=== PATIENT | female | born 1945 | race Caucasian/White ===

== ENCOUNTER 2017-05-22 10:50 | Outpatient (CLI) | payer MEDICARE, OTHER ==
--- NOTE | 2017-05-22 13:25 | MMO ---
BASELINE BILATERAL SCREENING MAMMOGRAM: Date: 05/22/17 COMPARISON: None. HISTORY: Screening. FINDINGS: This patient's mammogram was interpreted with the assistance of computer-aided detection. The breasts are primary fatty replaced. Small, benign intramammary nodes are seen bilaterally. There is no dominant mass or architectural distortion. No concerning microcalcifications are noted. IMPRESSION: BIRADS 2: Benign Finding(s) Annual screening mammography recommended. POS: [facility]
== END 2017-05-22 10:51 | disposition home or self-care (01) ==
LOC: SCSMAMMO 10:50
PROVIDERS: ATTEND Family Medicine
DX: Z12.31 Encounter for screening mammogram for malignant neoplasm of breast (principal)
CPT/HCPCS: 77067; G0202

== ENCOUNTER 2017-08-15 14:53 | Outpatient (CLI) | payer MEDICARE, OTHER ==
--- NOTE | 2017-08-15 16:51 | RAD ---
PA AND LATERAL CHEST XRAY: DATE: 08/15/17. HISTORY: Three weeks of cough and congestion. COMPARISON: 04/14/17. FINDINGS: Cardiac silhouette and pulmonary vasculature are within normal limits. Linear scar versus atelectasi s is present at the left lung base. Lungs are otherwise clear. Osseous structures are intact. IMPRESSION: No acute cardiopulmonary process. POS: [facility]
== END 2017-08-15 14:54 | disposition home or self-care (01) ==
LOC: SCSRAD 14:53
PROVIDERS: ATTEND Family Medicine
DX: J20.8 Acute bronchitis due to other specified organisms (principal)
CPT/HCPCS: 71046

== ENCOUNTER 2018-12-03 16:30 | Outpatient (CLI) | payer MEDICARE, OTHER ==
--- NOTE | 2018-12-03 16:54 | RAD ---
LUMBAR SPINE 2 VIEWS: HISTORY: Lumbago with sciatica, right side FINDINGS: Degenerative changes are present, most prominent in the lower lumbar spine. There is grade 1-2 latasha listhesis of L5 over L5 vertebral bodies. No compression fracture or bony destruction is seen. There are vascular calcifications. Postop changes of cholecystectomy are present.
== END 2018-12-03 16:31 | disposition home or self-care (01) ==
LOC: BICRAD 16:30
PROVIDERS: ATTEND Family Medicine
DX: M54.41 Lumbago with sciatica, right side (principal)
CPT/HCPCS: 72100

== ENCOUNTER 2019-02-07 12:49 | Outpatient (CLI) | payer MEDICARE, OTHER ==
--- NOTE | 2019-02-07 14:01 | MRI ---
MRI LUMBAR SPINE NONCONTRAST: HISTORY: Low back pain. Radiation down the right leg. COMPARISON: None. FINDINGS: Mildly heterogeneous T1 marrow signal intensity, compatible with senescent change. Lumbar spine verte bral body height is maintained. No fracture. 6.5 mm of anterolisthesis of L4 upon L5. No significant STIR hyperintensity to suggest vertebral body edema or ligamentous injury. Visualized paraspinal muscles are unremarkable. T2 hyperintensities in the left and right renal pelvi s may represent parapelvic cysts. Conus medullaris terminates at the superior aspect of L1. T12-L1: Minimal disc bulge. No significant central canal stenosis or significant neural foraminal brian rowing. L1-L2:No significant central canal stenosis or significant neural foraminal narrowing. L2-L3:Minimal left and right paracentral disc bulges along with mild ligamentum flavum thickening and facet hypertrophy result in mild central canal stenosis. Mild bilateral neural foraminal narrowing. L3-L4:Minimal left and right paracentral/subarticular disc bulges. Ligamentum flavum thickening and f acet hypertrophy are present. Mild central canal stenosis. Narrowing of both subarticular zones with partial obscuration of bilateral traversing L4 nerve root secondary to disc material and posteri or element hypertrophy. Mild bilateral neural foraminal narrowing. L4-L5:Broad-based disc bulge, ligamentum flavum thickening and facet hypertrophy result in moderate c entral canal stenosis. Mild to moderate right and mild left neural foraminal narrowing. L5-S1:No significant posterior disc abdomen body. No significant central canal stenosis. Right neural foramen is patent. Moderate left foraminal narrowing due to posterior element hypertrophy. IMPRESSION: Degenerative changes of the lumbar spine as detailed above. Transcribed Date/Time: 02/07/2019 2:43 PM
== END 2019-02-07 12:50 | disposition home or self-care (01) ==
LOC: BICMRI 12:49
PROVIDERS: ATTEND Physical Medicine & Rehabilitation
DX: M54.5 Low back pain (principal); M79.604 Pain in right leg; R29.898 Other symptoms and signs involving the musculoskeletal system; M47.816 Spondylosis without myelopathy or radiculopathy, lumbar region
CPT/HCPCS: 72148

== ENCOUNTER 2019-06-17 13:50 | Outpatient (CLI) | payer MEDICARE, OTHER ==
--- NOTE | 2019-06-17 14:20 | BD ---
EXAM: DEXA bone density examination HISTORY: 74-year-old postmenopausal female for screening COMPARISON: None FINDINGS: L1--bone mineral density 0.795 g/sq cm; T score -1.8 L2--bone mineral density 0.959 g/sq cm; T score -0.6 L3--bone mineral density 0.975 g/sq cm; T score -1.0 L4--bone mineral density 1.018 g/sq cm; T score -0.4 Total L1-L4--bone mineral density 0.949 g/sq cm; T score -0.9 Left femoral neck--bone mineral density0.651; T score -1.8 Total proximal left femur--bone mineral density 0.795; T score -1.2 IMPRESSION: Osteopenia This patient has a 10 year WHO fracture risk of a major osteoporotic fracture of 11% and of a hip fracture of 2.4%.
== END 2019-06-17 13:51 | disposition home or self-care (01) ==
LOC: BICMAMMO 13:50
PROVIDERS: ATTEND Family Medicine
DX: Z13.820 Encounter for screening for osteoporosis (principal); Z00.00 Encounter for general adult medical examination without abnormal findings; M85.80 Other specified disorders of bone density and structure, unspecified site; Z78.0 Asymptomatic menopausal state
CPT/HCPCS: 77080

== ENCOUNTER 2022-12-23 11:48 | Outpatient (CLI) | payer MEDICARE, OTHER | END 2022-12-23 11:49 | disposition home or self-care (01) | LOC: SCSRAD 11:48 | PROVIDERS: ATTEND Family Medicine | DX: J20.9 Acute bronchitis, unspecified (principal); R06.2 Wheezing | CPT/HCPCS: 71046 ==